=== PATIENT | male | born 1975 | race Caucasian/White ===

== ENCOUNTER 2022-02-04 07:08 | Day surgery (SDC) | payer BC ==
[2022-02-03 08:47] LABS: Potassium 4.1 mmol/L (3.5-5.1)
[2022-02-03 09:31] LABS: Hematocrit 49.7 % (39.6-49.0); Lymphocytes % 40.3 % (15.3-44.8); MCV 95.5 fL (80-100)
--- NOTE | 2022-02-03 09:50 | RAD REPORT ---
EXAM DESCRIPTION: RAD - Chest Pa And Lat (2 Views) - 02/03/2022 8:11 am CLINICAL HISTORY: Pre op pending hernia repair Chest pain. COMPARISON: No comparisons FINDINGS: The lungs are clear. The heart is normal in size. No displaced fractures. IMPRESSION: No acute or concerning finding suspected.
--- NOTE | 2022-02-03 13:37 | EKG ---
Test Date: 2022-02-03 Test Time: 08:14:24 Racing Board Marker: ADRIAN MEASUREMENT RESULTS: Intervals: Rate: 67 CO: 148 QRSD: 82 QT: 388 QTc: 409 [place]: P: 34 CO: 148 QRS: 31 T: 33 INTERPRETIVE STATEMENTS: Normal sinus rhythm Normal ECG No previous ECG available for comparison Electronically Signed On 02-03-22 13:36:55 [employer]ON TWIRLER by Lc Mendoza
[2022-02-04] MEDS ORDERED: Ringers Lactate 1,000 ML IV ONE (07:29)
[2022-02-04] MEDS ORDERED: LIDOCAINE 2% MPF 5 ML VIAL ONE (09:47)
[2022-02-04] MEDS ORDERED: FENTANYL CITR 100 MCG/2 ML ONE (09:47)
[2022-02-04] MEDS ORDERED: MIDAZOLAM HCL 2 MG/2 ML INJ ONE (09:47)
[2022-02-04] MEDS ORDERED: propofoL 200 MG/20 ML VIAL IV ONE ×2 (09:47→10:40)
[2022-02-04] MEDS ORDERED: NS 0.9% VIAL 10 ML ONE (10:05)
[2022-02-04] MEDS: CEFAZOLIN SODIUM 1 GM/VIAL ONE ×2 (10:10→10:30)
[2022-02-04] MEDS ORDERED: ONDANSETRON 4 MG/2 ML VIAL ONE (10:20)
[2022-02-04] MEDS ORDERED: KETOROLAC 30 MG/ML INJ ONE (10:20)
[2022-02-04] MEDS ORDERED: EPHEDRINE SULF 50 MG/ML VIAL ONE (11:05)
--- NOTE | 2022-02-04 11:20 | P.OP ---
Date of Service: 02/04/22 Preop diagnosis: Left inguinal hernia Postop diagnosis: Same Procedure performed: Repair left inguinal hernia Surgeon: Gopal Morgan MD [employer] Consultant: None Estimated blood loss: Minimal Specimen: Hernia sac and cord lipoma Findings: As above Anesthesia: General Complications: None Drains: None Fluids and blood products: Nonapplicable Disposition: Recovery room Operative note: Patient brought to the OR and placed in the supine position. General anesthesia begun. Patient prepped and draped in the usual sterile fashion. Marcaine 0.5% infiltrated locally. 15 blade used to make a 4 cm oblique incision between the left pubic tubercle and the anterior iliac superior spine. Subcutaneous tissue divided. Mar's fascia identified and divided. Aponeurosis identified and mobilized inferiorly. Aponeurosis opened through the external ring. Ilioinguinal nerve identified and retracted out of the field of dissection. Cord mobilized at the pubic tubercle. Cord skeletonized. A moderate sized hernia sac identified in the anteromedial portion of the sac with a cord lipoma. High ligation of both structures done after adequate dissection. 2-0 Prolene and 0 chromic used to tie off both ends then Marlex mesh plug placed in the internal ring. Onlay mesh placed in the inguinal floor. Medially the mesh was secured to pubic tubercle, superiorly to the conjoined tendon, inferiorly to the shelving edge and laterally to each other. Cord structures and ilioinguinal nerve placed back in their anatomic location. 2-0 Prolene used to close the aponeurosis. 3-0 chromic used to close the Mar's fascia. Opal used to close skin. Sterile dressing applied. Patient awakened and taken to recovery room in good general condition. CC:
[2022-02-04] MEDS ORDERED: HYDROCODONE/APAP 7.5/325 MG TAB PO PRN (11:22)
[2022-02-04] MEDS: HYDROMORPHONE HCL 1 MG/ML INJ ONE ×2 (11:44→11:57)
[2022-02-04] MEDS ORDERED: HYDROMORPHONE HCL 1 MG/ML INJ ONE (12:12)
[2022-02-04] MEDS ORDERED: HYDROCODONE/APAP 7.5/325 MG TAB ONE (12:35)
[2022-02-04 12:52] VITALS: BP 160/95; TEMP 97.1; O2SAT 100
== END 2022-02-04 14:25 | disposition home or self-care (01) ==
LOC: OR 07:08
PROVIDERS: ATTEND Surgery
PROC: 0YU50JZ Supplement Right Inguinal Region with Synthetic Substitute, Open Approach (ICD-10-PCS; principal; 2022-02-04 09:00)
DX: K40.90 Unilateral inguinal hernia, without obstruction or gangrene, not specified as recurrent (principal)
CPT/HCPCS: 93005; 85025; 80048; 36415; 88302; 71046; 49505; J2704 ×2; J2001; J2250; J3010; A4216; J1170 ×2; J7120; J2405; J0690